=== PATIENT | female | born 1945 | race Caucasian/White ===

== ENCOUNTER 2018-04-20 11:25 | Inpatient (IN) | payer OTHER ==
[2018-04-20] MEDS ORDERED: methylPREDNISolone SOD SUCC 125 MG/2 ML VIAL IVP ONE (12:02)
[2018-04-20] MEDS ORDERED: IPRATROPIUM/ALBUTEROL 3 ML DEYVIAL IH ONE (12:02)
[2018-04-20] MEDS ORDERED: ALBUTEROL 3 ML DEYVIAL IH ONE ×2 (12:02→14:07)
[2018-04-20 12:12] LABS: PLATELET COUNT 411 10^3/uL (150-400)
--- NOTE | 2018-04-20 12:26 | EDPHY ---
HPI/HX/ROS/PE/MDM Narrative: CHIEF COMPLAINT: Shortness of breath HISTORY OF PRESENT ILLNESS: This patient is a 72 year old female with history of COPD complaining of an acute exacerbation of her COPD and significant shortness of breath. She began feeling unwell last night around 6pm and had frequent coughing and difficulty breathing from then until about 2am. She denies productive cough, but does have chest pain associated with the cough which is unusual. She has felt chilled but denies measured fever. She denies any recent ill contacts. She had a new skylight installed in her home several days ago which resulted in a strong chemical smell and she feels her symptoms worsened following this. No palpitations, vomiting, diarrhea, urinary complaints, headache, lightheadedness. She was recently admitted at [facility] for COPD exacerbation and had a steroid course. Of note she states she also had some chest pain then which was relieved with Nitro during this visit, but she is unclear about what cardiac history she may have. She had a recent cardiac catheterization which reportedly showed a 30% blockage; no stents placed. REVIEW OF SYSTEMS: A comprehensive 10 system review of systems is otherwise negative aside from elements mentioned in the history of present illness and medical decision making. PAST MEDICAL HISTORY: COPD (Home oxygen, 3L during the day with exercise, 2L at night) SOCIAL HISTORY: Former smoker. . Retired. VITAL SIGNS: Reviewed by me GENERAL: Thin, elderly female, 2-3 word dyspnea. Increased respiratory effort and rate. HEENT: Atraumatic. Eyes: No icterus, no injection. Mouth: Slightly dry moist mucous membranes. No erythema or lesions. Neck: supple with no adenopathy. LUNGS: Minimal air movement, left greater than right. CARDIAC: Regular rate and rhythm, no rubs, murmurs or gallops. ABDOMEN: Soft, nontender, nondistended, bowel sounds normal. BACK: No CVA tenderness. EXTREMITIES: No trauma. No edema. Range of motion is normal throughout. NEURO: Alert and oriented, grossly nonfocal. SKIN: Warm and dry, no rash. PSYCHIATRIC: Normal mentation, no agitation. Portions of this note were transcribed by a medical records receptionist. I personally performed a history, physical exam, medical decision making, and confirmed accuracy of information the transcribed note. ED Course: 72 y/o female with history of COPD presents with worsening shortness of breath. Administered DuoNeb. Plan for labs including CBC, chemistries, troponin, d-dimer , BNP, liver panel, respiratory pathogen PCR. Reassessed. Air movement slightly improved. Plan to administer an additional DuoNeb. Discussed admission. The patient concurs that admission would be best for her at this time. 12-LEAD EKG: Please see the full report in [facility]. My interpretation: Sinus rhythm, right atrial enlargement POC troponin 0.00. Chest x-ray shows mild bronchitis, possible early infiltrate in the right middle lobe. Patient received additional nebulizer treatments, steroids. Respiratory pathogen panel is negative for organisms. Patient was admitted to the hospital service for ongoing treatment of COPD exacerbation. Troponin and BNP are negative. 14:04 Dr. Hackett accepts admission for COPD exacerbation, dyspnea. MDM: Differential diagnosis for the patient's shortness of breath was considered including but not limited to pulmonary infectious processes, COPD exacerbation, pulmonary emboli, pulmonary edema, congestive heart failure, and cardiac causes. - Data Points Imaging Results: Imaging Impressions Chest X-Ray 04/20/18 11:51 Impression: Mild bronchitis. Possible early infiltrate in the right middle lobe. Other chronic findings as above. Imaging: I viewed and interpreted images myself Laboratory Results: Laboratory Results 04/20/18 11:50 04/20/18 11:50 04/20/18 04/20/18 04/20/18 11:52 11:50 11:50 WBC RBC Hgb Hct MCV MCH MCHC RDW Plt Count MPV Neut % (Auto) Lymph % (Auto) [place] % (Auto) Eos % (Auto) Baso % (Auto) Nucleat RBC Rel Count Absolute Neuts (auto) Absolute Lymphs (auto) Absolute Monos (auto) Absolute Eos (auto) Absolute Basos (auto) Absolute Nucleated RBC Immature Gran % Immature Gran # D-Dimer 0.42 ug/mLFEU ug/mLFEU (0.00-0.50) Sodium 137 mEq/L mEq/L (135-145) Potassium 4.7 mEq/L mEq/L (3.3-5.0) Chloride 97 mEq/L mEq/L (97-110) Carbon Dioxide 30 mEq/l mEq/l (22-31) Anion Gap 10 mEq/L mEq/L (8-16) BUN 14 mg/dL mg/dL (7-23) Creatinine 0.5 mg/dL L mg/dL (0.6-1.0) Estimated GFR > 60 Glucose 110 mg/dL H mg/dL (70-100) Calcium 9.8 mg/dL mg/dL (8.5-10.4) Total Bilirubin 0.4 mg/dL mg/dL (0.1-1.4) Conjugated Bilirubin 0.2 mg/dL mg/dL (0.0-0.5) Unconjugated Bilirubin 0.2 mg/dL mg/dL (0.0-1.1) AST 22 IU/L IU/L (14-46) ALT 34 IU/L IU/L (9-52) Alkaline Phosphatase 68 IU/L IU/L (38-126) POC Troponin I 0.00 ng/mL ng/mL (0.00-0.08) NT-Pro-B Natriuret Pep 79 pg/mL pg/mL (0-125) Total Protein 6.7 g/dL g/dL (6.3-8.2) Albumin 4.1 g/dL g/dL (3.5-5.0) 04/20/18 11:50 WBC 14.43 10^3/uL H 10^3/uL (3.80-9.50) RBC 4.92 10^6/uL 10^6/uL (4.18-5.33) Hgb 15.0 g/dL g/dL (12.6-16.3) Hct 46.7 % % (38.0-47.0) MCV 94.9 fL fL (81.5-99.8) MCH 30.5 pg pg (27.9-34.1) MCHC 32.1 g/dL L g/dL (32.4-36.7) RDW 13.9 % % (11.5-15.2) Plt Count 411 10^3/uL H 10^3/uL (150-400) MPV 8.4 fL L fL (8.7-11.7) Neut % (Auto) 75.5 % H % (39.3-74.2) Lymph % (Auto) 12.8 % L % (15.0-45.0) [place] % (Auto) 6.2 % % (4.5-13.0) Eos % (Auto) 4.3 % % (0.6-7.6) Baso % (Auto) 0.8 % % (0.3-1.7) Nucleat RBC Rel Count 0.0 % % (0.0-0.2) Absolute Neuts (auto) 10.89 10^3/uL H 10^3/uL (1.70-6.50) Absolute Lymphs (auto) 1.85 10^3/uL 10^3/uL (1.00-3.00) Absolute Monos (auto) 0.90 10^3/uL H 10^3/uL (0.30-0.80) Absolute Eos (auto) 0.62 10^3/uL H 10^3/uL (0.03-0.40) Absolute Basos (auto) 0.11 10^3/uL H 10^3/uL (0.02-0.10) Absolute Nucleated RBC 0.00 10^3/uL 10^3/uL (0-0.01) Immature Gran % 0.4 % % (0.0-1.1) Immature Gran # 0.06 10^3/uL 10^3/uL (0.00-0.10) D-Dimer Sodium Potassium Chloride Carbon Dioxide Anion Gap BUN Creatinine Estimated GFR Glucose Calcium Total Bilirubin Conjugated Bilirubin Unconjugated Bilirubin AST ALT Alkaline Phosphatase POC Troponin I NT-Pro-B Natriuret Pep Total Protein Albumin Medications Given: Discontinued Medications Albuterol (Proventil Neb) 3 ml IH EDNOW ONE Stop: 04/20/18 12:03 Last Admin: 04/20/18 12:14 Dose: 3 ml Albuterol (Proventil Neb) 3 ml IH EDNOW ONE Stop: 04/20/18 14:08 Last Admin: 04/20/18 14:09 Dose: 3 ml Albuterol/Ipratropium (Duoneb) 3 ml IH EDNOW ONE Stop: 04/20/18 12:03 Last Admin: 04/20/18 12:13 Dose: 3 ml Methylprednisolone Sodium Succinate (Solu-Medrol) 125 mg IVP EDNOW ONE Stop: 04/20/18 12:03 Last Admin: 04/20/18 12:13 Dose: 125 mg Point of Care Test Results: Chemistry 04/20/18 11:52 POC Troponin I 0.00 ng/mL ng/mL (0.00-0.08) Microbiology Results: MICROBIOLOGY 04/20/18 12:50 Nasal, Sinus - [place] Viral Transport Respiratory Panel ( PCR) - Final No Organism Detected General Time Seen by Provider: 04/20/18 11:56 Initial Vital Signs: Initial Vital Signs Temperature (C) 36.4 C 04/20/18 11:39 Heart Rate 99 04/20/18 11:39 Respiratory Rate 24 H 04/20/18 11:39 Blood Pressure 153/102 H 04/20/18 11:39 O2 Sat (%) 94 04/20/18 11:39 O2 Delivery Mode Nasal Cannula O2 (L/minute) 2 Allergies/Adverse Reactions: No Known Allergies Allergy (Verified 04/20/18 14:34) Home Medications: Medication Instructions Recorded Fluticasone/Salmeterol [Advair Hfa 1 puffs IH DAILY 03/30/16 115-21 Mcg Inhaler] Albuterol [Proventil Neb] 3 ml IH Q6HRS 04/20/18 Aspirin [Aspirin 81mg (*)] 81 mg PO DAILY 04/20/18 Atorvastatin Calcium [Lipitor 10 10 mg PO DAILY 04/20/18 mg (*)] Isosorbide Mononitrate [Imdur 30 30 mg PO DAILY 04/20/18 mg (*)] Departure - Departure Disposition: [facility] Inpatient Acute Clinical Impression: Chronic obstructive pulmonary disease with acute exacerbation Acute exacerbation of congestive heart failure Qualifiers: Heart failure type: unspecified Qualified Code(s): I50.9 - Heart failure, unspecified Condition: Fair Report Scribed for: Jennifer Clark Report Scribed by: Elyssa Whyte Date of Report: 04/20/18 Time of Report: 15:27
[2018-04-20] MEDS ORDERED: ALBUTEROL 3 ML DEYVIAL ONE (14:05)
[2018-04-20] MEDS ORDERED: ONDANSETRON 4 MG/2 ML VIAL IVP PRN (14:09)
[2018-04-20] MEDS ORDERED: ALBUTEROL 3 ML DEYVIAL IH PRN (14:09)
[2018-04-20] MEDS ORDERED: ACETAMINOPHEN 325 MG TAB PO PRN (14:09)
[2018-04-20] MEDS ORDERED: ONDANSETRON DISINTEGRATING 4 MG TAB PO PRN (14:09)
--- NOTE | 2018-04-20 14:51 | PDGENHP ---
History and Physical - Chief Complaint SOB, Cough - History of Present Illness Jessica Reese is a 72 yo F with PMHx of COPD on home 02 with 3 recent admissions for exacerbations who presents to [facility] for SOB. She reports that she began to experience SOB over the past few days with acute worsening last night. She attempted to take albuterol inhaler without significant improvement in SOB. She reports recent non-productive cough and chills. She denies any chest pain but does report R sided rib pain. She denies edema, d/c, n/v, palpitations , LH/dizziness. She was recently admitted to OSH 2 weeks ago and was discharged on course of Azithromycin and Prednisone which were completed one and a half weeks ago. She also reports she had an episode of chest pain prior to her last outside hospitalization. She has a cardiac cath at that time which showed 30% blockages with no stents placed. History Information - Allergies/Home Medication List Allergies/Adverse Reactions: No Known Allergies Allergy (Verified 04/20/18 14:34) Home Medications: Fluticasone/Salmeterol [Advair Hfa 115-21 Mcg Inhaler] 1 puffs IH DAILY [Last Taken 04/20/18] Albuterol [Proventil Neb] 3 ml IH Q6HRS 04/20/18 [Last Taken 04/20/18] Aspirin [Aspirin 81mg (*)] 81 mg PO DAILY 04/20/18 [Last Taken 04/20/18] Atorvastatin Calcium [Lipitor 10 mg (*)] 10 mg PO DAILY 04/20/18 [Last Taken ] Isosorbide Mononitrate [Imdur 30 mg (*)] 30 mg PO DAILY 04/20/18 [Last Taken ] I have personally reviewed and updated: family history, medical history, social history, surgical history - Past Medical History COPD - Surgical History Reports: no pertinent surgical hx - Family History Positive for: lung disease - Social History Smoking Status: Former smoker Review of Systems Review of Systems: ROS: 10pt was reviewed & negative except for what was stated in HPI & below Physical Exam Physical Exam: Temp Pulse Resp BP Pulse Ox 36.7 C 96 20 131/92 H 94 04/20/18 14:09 04/20/18 14:09 04/20/18 14:09 04/20/18 14:09 04/20/18 14:09 Constitutional: no apparent distress Eyes: PERRL Ears, Nose, Mouth, Throat: moist mucous membranes Cardiovascular: regular rate and rhythym Respiratory: no respiratory distress, reduced air movement, expiratory wheeze, bronchial breath sounds Gastrointestinal: normoactive bowel sounds, soft, non-tender abdomen Genitourinary: no bladder tenderness Skin: warm Musculoskeletal: no muscle tenderness Neurologic: AAOx3 Psychiatric: interacting appropriately Lab Data & Imaging Review 04/20/18 11:50 04/20/18 11:50 WBC 14.43 10^3/uL (3.80-9.50) H 04/20/18 11:50 RBC 4.92 10^6/uL (4.18-5.33) 04/20/18 11:50 Hgb 15.0 g/dL (12.6-16.3) 04/20/18 11:50 Hct 46.7 % (38.0-47.0) 04/20/18 11:50 MCV 94.9 fL (81.5-99.8) 04/20/18 11:50 MCH 30.5 pg (27.9-34.1) 04/20/18 11:50 MCHC 32.1 g/dL (32.4-36.7) L 04/20/18 11:50 RDW 13.9 % (11.5-15.2) 04/20/18 11:50 Plt Count 411 10^3/uL (150-400) H 04/20/18 11:50 MPV 8.4 fL (8.7-11.7) L 04/20/18 11:50 Neut % (Auto) 75.5 % (39.3-74.2) H 04/20/18 11:50 Lymph % (Auto) 12.8 % (15.0-45.0) L 04/20/18 11:50 Story % (Auto) 6.2 % (4.5-13.0) 04/20/18 11:50 Eos % (Auto) 4.3 % (0.6-7.6) 04/20/18 11:50 Baso % (Auto) 0.8 % (0.3-1.7) 04/20/18 11:50 Nucleat RBC Rel Count 0.0 % (0.0-0.2) 04/20/18 11:50 Absolute Neuts (auto) 10.89 10^3/uL (1.70-6.50) H 04/20/18 11:50 Absolute Lymphs (auto) 1.85 10^3/uL (1.00-3.00) 04/20/18 11:50 Absolute Monos (auto) 0.90 10^3/uL (0.30-0.80) H 04/20/18 11:50 Absolute Eos (auto) 0.62 10^3/uL (0.03-0.40) H 04/20/18 11:50 Absolute Basos (auto) 0.11 10^3/uL (0.02-0.10) H 04/20/18 11:50 Absolute Nucleated RBC 0.00 10^3/uL (0-0.01) 04/20/18 11:50 Immature Gran % 0.4 % (0.0-1.1) 04/20/18 11:50 Immature Gran # 0.06 10^3/uL (0.00-0.10) 04/20/18 11:50 D-Dimer 0.42 ug/mLFEU (0.00-0.50) 04/20/18 11:50 Sodium 137 mEq/L (135-145) 04/20/18 11:50 Potassium 4.7 mEq/L (3.3-5.0) 04/20/18 11:50 Chloride 97 mEq/L (97-110) 04/20/18 11:50 Carbon Dioxide 30 mEq/l (22-31) 04/20/18 11:50 Anion Gap 10 mEq/L (8-16) 04/20/18 11:50 BUN 14 mg/dL (7-23) 04/20/18 11:50 Creatinine 0.5 mg/dL (0.6-1.0) L 04/20/18 11:50 Estimated GFR > 60 04/20/18 11:50 Glucose 110 mg/dL (70-100) H 04/20/18 11:50 Calcium 9.8 mg/dL (8.5-10.4) 04/20/18 11:50 Total Bilirubin 0.4 mg/dL (0.1-1.4) 04/20/18 11:50 Conjugated Bilirubin 0.2 mg/dL (0.0-0.5) 04/20/18 11:50 Unconjugated Bilirubin 0.2 mg/dL (0.0-1.1) 04/20/18 11:50 AST 22 IU/L (14-46) 04/20/18 11:50 ALT 34 IU/L (9-52) 04/20/18 11:50 Alkaline Phosphatase 68 IU/L (38-126) 04/20/18 11:50 POC Troponin I 0.00 ng/mL (0.00-0.08) 04/20/18 11:52 NT-Pro-B Natriuret Pep 79 pg/mL (0-125) 04/20/18 11:50 Total Protein 6.7 g/dL (6.3-8.2) 04/20/18 11:50 Albumin 4.1 g/dL (3.5-5.0) 04/20/18 11:50 Visualized and Interpreted Chest x-ray results: Yes Chest X-Ray results: infiltrate Assessment & Plan Assessment: COPD Exacerbation, Acute - Reports recent SOB with nonproductive cough - On home , currently saturating in 90's on 3L - S/p 125 mg IV Solumedrol in ED, will continue Prednisone 40 mg qd - Will start Levaquin IV 500 mg qd for RML infiltrate seen on CXR, also seen mild bronchitis - Patient may require longer taper , consider consulting Pulmonology for input give multiple recent exacerbations - S/p Duoneb in ED, will order scheduled and PRN - D-dimer negative in ED Bacterial Pneumonia, Acute - CXR on admission shows possible early RML infiltrate - WBC 14.4 on admission - Will start IV Levaquin as above - Viral PCR pending - Transition to PO abx pending clinical course CAD - Per patient had LHC during recent hospitalization with 30% blockage - Patient denies chest pain currently - Continue home ASA, Atorvastatin, Imdur FEN: PRN Ppx: Lovenox Code: DNI Dispo: Admit to Medicine
[2018-04-20] MEDS ORDERED: IPRATROPIUM/ALBUTEROL 3 ML DEYVIAL IH PRN (15:00)
--- NOTE | 2018-04-20 15:53 | CPEKG ---
Test Reason : OPEN Blood Pressure : / mmHG Vent. Rate : 098 BPM Atrial Rate : 097 BPM P-R Int : 186 ms QRS Dur : 078 ms QT Int : 333 ms P-R-T Axes : 088 256 076 degrees QTc Int : 426 ms Sinus rhythm Atrial premature complex Right atrial enlargement Markedly posterior QRS axis Confirmed by Jennifer Clark ([id number]) on 04/20/2018 3:53:33 PM Referred By: Confirmed By:Jennifer Clark
[2018-04-20] MEDS: levOFLOXACIN 500 MG/DEXTROSE 100 ML IV SCH (16:36)
--- NOTE | 2018-04-20 17:28 | PDMN ---
Medical Necessity Medical necessity: [facility] [place] M282 CAP and M100 COPD: 72 y/o w/ COPD Exacerbation, Acute, and Bacterial Pneumonia, Acute, on O2, start IV steroids, nebs, WBC 14.4 , initially tachypneac, start IV antibx, PT/OT consults, isolation precautions, Hx CAD, recently admitted to another facility 2wks ago and was d/c w/ azithromycin and prednisone which she completed. Anticipate >2MN for ongoing monitoring and treatment.
[2018-04-20] MEDS: IPRATROPIUM/ALBUTEROL 3 ML DEYVIAL IH SCH ×2 (17:49→21:36)
[2018-04-21 04:55] LABS: PLATELET COUNT 365 10^3/uL (150-400)
[2018-04-21] MEDS: IPRATROPIUM/ALBUTEROL 3 ML DEYVIAL IH SCH ×4 (05:48→21:59)
[2018-04-21] MEDS: ASPIRIN 81 MG CHEWABLE TAB PO SCH (09:07)
[2018-04-21] MEDS: ISOSORBIDE MONONITRATE 30 MG TAB.SR PO SCH (09:07)
[2018-04-21] MEDS: ENOXAPARIN 40 MG/0.4 ML SYR SC SCH (09:07)
[2018-04-21] MEDS: ATORVASTATIN CALCIUM 10 MG TAB PO SCH (09:07)
[2018-04-21] MEDS: predniSONE 20 MG TAB PO SCH (09:07)
[2018-04-21] MEDS: levOFLOXACIN 500 MG/DEXTROSE 100 ML IV SCH (09:17)
--- NOTE | 2018-04-21 09:40 | ASMTCASEMG ---
Living Arrangements What is your living Answers: With Spouse arrangement? Who do you live with? Type Of Residence What kind of residence do Answers: House you live in? Discharge Plan Comments Coordination Status Comments Notes: P ts case discussed w/ JOSE Murray. Pt is a 72 y/o female admitted for shortness of breath and a cough. Pt is legally blind. Pts is unable to walk at this time. Therapies have been ordered and awaiting recommendations. Needs are TBD at this time. CM to follow. Plan: TBD Date Signed: 04/21/2018 09:39 AM Electronically Signed By:MAYNOR Mondragon
[2018-04-21] MEDS: SALMETEROL IH SCH (10:35)
[2018-04-21] MEDS: FLUTICASONE IH SCH (10:35)
--- NOTE | 2018-04-21 10:37 | HOSPPROG ---
Hospitalist Progress Note Assessment/Plan: 72yo F with COPD on supplemental O2, non-obstructive CAD, blindness presents with 4th reported hospitalization in 2 months for dyspnea. She reports being treated for COPD exacerbations during all of these episodes. #Acute COPD exacerbation: Mild. She has improved. Possibly triggered by pneumonia but not impressive x-ray. - Continue scheduled bronchodilators, steroids, antibiotics per below - Will discuss with pulmonology given her frequent admissions for same. She has been followed by Dr Woods but hasn't seen him in 6 months or so. I query whether she is not using inhalers correctly at home and will try to provide education on this. #Suspected bacterial pneumonia: X-ray with possible early RML infiltrate on lateral view. RVP negative. - Continue levofloxacin, switch to oral and reduce dose for GFR #Acute on chronic respiratory insufficiency: Now at baseline 2-3L via NC. #Non-obstructive CAD: Recent angiogram with greatest stenosis of 40% in mid- LAD. LVEF normal. No anginal sxs currently. She has been in cardiac rehab in past. - Continue asa, statin, nitrate #Blindness due to macular degeneration Diet: regular VTE ppx: Lovenox Code: DNI Dispo: Remain inpatient for scheduled nebulizers, management of COPD exacerbation. Subjective: Shortness of breath improved with nebs, treatment. Denies cough, fevers. Objective: Vital Signs Temp Pulse Resp BP Pulse Ox 36.6 C 68 16 120/63 92 04/21/18 07:40 04/21/18 07:40 04/21/18 07:40 04/21/18 07:40 04/21/18 07:40 Laboratory Results 04/21/18 04:31 04/20/18 04/21/18 04/22/18 05:59 05:59 05:59 Intake Total 1100 Balance 1100 - Physical Exam Constitutional: no apparent distress, appears nourished, not in pain Eyes: PERRL, anicteric sclera, EOMI Ears, Nose, Mouth, Throat: moist mucous membranes, hearing normal, ears appear normal, no oral mucosal ulcers Cardiovascular: regular rate and rhythym, no murmur, rub, or gallop, No JVD, No edema Respiratory: no respiratory distress, reduced air movement (throughout), No expiratory wheeze, No rhonchi Gastrointestinal: normoactive bowel sounds, soft, non-tender abdomen, no palpable masses Genitourinary: no bladder fullness, no bladder tenderness, no renal bruits Skin: no rashes or abrasions, no fluctuance, no induration Neurologic: AAOx3, sensation intact bilaterally Psychiatric: interacting appropriately, not anxious, not encephalopathic, thought process linear ICD10 Worksheet Patient Problems: Problems Problem Status Onset Acute exacerbation of congestive heart failure Acute Chronic obstructive pulmonary disease with acute exacerbation Acute Bronchitis Acute COPD (chronic obstructive pulmonary disease) Acute Chronic Disease Mgmt/Transitional Care Acute Hypoxia Acute
[2018-04-22] MEDS: IPRATROPIUM/ALBUTEROL 3 ML DEYVIAL IH SCH ×4 (06:54→21:10)
[2018-04-22] MEDS: ASPIRIN 81 MG CHEWABLE TAB PO SCH (08:51)
[2018-04-22] MEDS: ISOSORBIDE MONONITRATE 30 MG TAB.SR PO SCH (08:51)
[2018-04-22] MEDS: ATORVASTATIN CALCIUM 10 MG TAB PO SCH (08:51)
[2018-04-22] MEDS: predniSONE 20 MG TAB PO SCH (08:51)
[2018-04-22] MEDS: ENOXAPARIN 40 MG/0.4 ML SYR SC SCH (08:52)
[2018-04-22] MEDS: SALMETEROL IH SCH (08:53)
[2018-04-22] MEDS: FLUTICASONE IH SCH (08:53)
[2018-04-22] MEDS ORDERED: levOFLOXACIN 250 MG/DEXTROSE 50 ML IV SCH (09:00)
--- NOTE | 2018-04-22 10:29 | HOSPPROG ---
Hospitalist Progress Note Assessment/Plan: 72yo F with COPD on supplemental O2, non-obstructive CAD, blindness presents with 4th reported hospitalization in 2 months for dyspnea. She reports being treated for COPD exacerbations during all of these episodes. #Acute COPD exacerbation: Mild. She has improved. Possibly triggered by pneumonia but not impressive x-ray. - Continue scheduled bronchodilators, steroids, antibiotics per below. - Would wean her slowly from steroids upon discharge - Will discuss with pulmonology given her frequent admissions for same. She has been followed by Dr Woods but hasn't seen him in 6 months or so. I query whether she is not using inhalers correctly at home and will try to provide education on this. #Suspected bacterial pneumonia: X-ray with possible early RML infiltrate on lateral view. RVP negative. - Continue levofloxacin, switch to oral and reduce dose for GFR - duration for abx should be 5-7 days #Acute on chronic respiratory insufficiency: Now at baseline 2-3L via NC. #Non-obstructive CAD: Recent angiogram with greatest stenosis of 40% in mid- LAD. LVEF normal. No anginal sxs currently. She has been in cardiac rehab in past. - Continue asa, statin, nitrate #Blindness due to macular degeneration #Weakness-generalized -PT/OT following. will cont to work with them today. She may benefit from SNF Diet: regular VTE ppx: Lovenox Code: DNI Dispo: Remain inpatient for scheduled nebulizers, management of COPD exacerbation, and mgmt of weakness. She will likely benefit from a SNF and CM will determine if this is a viable option Subjective: reports that she feels weak. PT/OT will work with her. Resp status is better. Objective: Vital Signs Temp Pulse Resp BP Pulse Ox 36.6 C 84 18 119/70 91 L 04/22/18 09:27 04/22/18 09:27 04/22/18 09:27 04/22/18 09:27 04/22/18 09:27 Laboratory Results 04/22/18 04:58 04/21/18 04/22/18 04/23/18 05:59 05:59 05:59 Intake Total 1100 Balance 1100 - Physical Exam Constitutional: no apparent distress Eyes: PERRL Ears, Nose, Mouth, Throat: moist mucous membranes, hearing normal Cardiovascular: regular rate and rhythym, No edema Respiratory: no respiratory distress, reduced air movement Gastrointestinal: normoactive bowel sounds, soft, non-tender abdomen Skin: warm Musculoskeletal: generalized weakness Neurologic: AAOx3 Psychiatric: interacting appropriately, not anxious, not encephalopathic Lymph, Heme, Immunologic: No petechiae ICD10 Worksheet Patient Problems: Problems Problem Status Onset Acute exacerbation of congestive heart failure Acute Chronic obstructive pulmonary disease with acute exacerbation Acute Bronchitis Acute COPD (chronic obstructive pulmonary disease) Acute Chronic Disease Mgmt/Transitional Care Acute Hypoxia Acute
--- NOTE | 2018-04-22 10:48 | ASMTCMCOM ---
CM Note CM Note Notes: CM met w/ pt for dispo planning. PT is recommending SNF. Pt is agreeable for CM to make referrals to [facility] and [facility]. CM to follow. Plan: SNF Date Signed: 04/22/2018 10:47 AM Electronically Signed By:MAYNOR Mondragon
--- NOTE | 2018-04-22 14:02 | ASMTCMCOM ---
JD Note CM Note Notes: Met with pt, let her know that [facility] and [facility] accepted. Pt chooses [facility], it will be easier for her . CM notified both facilities of her choice. DC Plan: [facility] Date Signed: 04/22/2018 02:01 PM Electronically Signed By:Olga Hollis RN
[2018-04-23] MEDS: IPRATROPIUM/ALBUTEROL 3 ML DEYVIAL IH SCH ×2 (05:13→11:05)
[2018-04-23] MEDS: ISOSORBIDE MONONITRATE 30 MG TAB.SR PO SCH (08:26)
[2018-04-23] MEDS: ATORVASTATIN CALCIUM 10 MG TAB PO SCH (08:26)
[2018-04-23] MEDS: ASPIRIN 81 MG CHEWABLE TAB PO SCH (08:26)
[2018-04-23] MEDS: predniSONE 20 MG TAB PO SCH (08:26)
[2018-04-23] MEDS: FLUTICASONE IH SCH (08:27)
[2018-04-23] MEDS: ENOXAPARIN 40 MG/0.4 ML SYR SC SCH (08:27)
[2018-04-23] MEDS: SALMETEROL IH SCH (08:27)
[2018-04-23 12:17] VITALS: BP 130/76
--- NOTE | 2018-04-23 13:09 | HOSPPROG ---
Hospitalist Progress Note Assessment/Plan: 72yo F with COPD on supplemental O2, non-obstructive CAD, blindness presents with 4th reported hospitalization in 2 months for dyspnea. She reports being treated for COPD exacerbations during all of these episodes. Acute COPD exacerbation: Mild. She has improved. Possibly triggered by pneumonia but not impressive x-ray. - Continue scheduled bronchodilators, steroids, antibiotics per below. - Would wean her slowly from steroids upon discharge - Will discuss with pulmonology given her frequent admissions for same. She has been followed by Dr Woods but hasn't seen him in 6 months or so. I query whether she is not using inhalers correctly at home and will try to provide education on this. Suspected bacterial pneumonia: X-ray with possible early RML infiltrate on lateral view. RVP negative. - Continue levofloxacin, switch to oral and reduce dose for GFR - duration for abx should be 5-7 days Acute on chronic respiratory insufficiency: Now at baseline 2-3L via NC. Non-obstructive CAD: Recent angiogram with greatest stenosis of 40% in mid-LAD. LVEF normal. No anginal sxs currently. She has been in cardiac rehab in past. - Continue asa, statin, nitrate Blindness due to macular degeneration Weakness-generalized -PT/OT following. will cont to work with them today. She may benefit from SNF Diet: regular VTE ppx: Lovenox Code: DNI Dispo:home today > 30 minutes on dc Subjective: feels better. anxious for dc Objective: Vital Signs Temp Pulse Resp BP Pulse Ox 36.4 C 94 18 130/76 H 92 04/23/18 07:20 04/23/18 12:16 04/23/18 12:16 04/23/18 12:16 04/23/18 12:16 Laboratory Results 04/23/18 05:06 - Physical Exam Constitutional: no apparent distress, appears nourished Eyes: PERRL, anicteric sclera Ears, Nose, Mouth, Throat: moist mucous membranes, hearing normal Cardiovascular: regular rate and rhythym, no murmur, rub, or gallop Respiratory: no respiratory distress, no rales or rhonchi Gastrointestinal: normoactive bowel sounds, soft, non-tender abdomen Genitourinary: no bladder fullness, No alonzo in urethra Skin: warm, normal color Musculoskeletal: full muscle strength Neurologic: AAOx3 Psychiatric: interacting appropriately Lymph, Heme, Immunologic: no cervical LAD ICD10 Worksheet Patient Problems: Problems Problem Status Onset Acute exacerbation of congestive heart failure Acute Chronic obstructive pulmonary disease with acute exacerbation Acute Bronchitis Acute COPD (chronic obstructive pulmonary disease) Acute Chronic Disease Mgmt/Transitional Care Acute Hypoxia Acute
--- NOTE | 2018-04-23 14:21 | ASMTLACE ---
[facility] Length of stay for Answers: 3 days current admission Acuity / Level of Answers: Yes Care: Did the patient have an inpatient admission? Comorbidities - select Answers: Chronic pulmonary disease all that apply Other Notes: Hx of DVT; Macular degeneration # of Emergency department Answers: 1-2 visits in the last 6 months Score: 10 Date Signed: 04/23/2018 02:20 PM Electronically Signed By:Olga Hollis RN
--- NOTE | 2018-04-23 15:29 | PDIAF ---
- Diagnosis Diagnosis: copd exacerbation Code Status: Limited Resuscitation - Medication Management Discharge Medications: Medications to Continue on Transfer Fluticasone/Salmeterol [Advair Hfa 115-21 Mcg Inhaler] 1 puffs IH DAILY [Last Taken 04/20/18] Albuterol [Proventil Neb] 3 ml IH Q6HRS 04/20/18 [Last Taken 04/20/18] Aspirin [Aspirin 81mg (*)] 81 mg PO DAILY 04/20/18 [Last Taken 04/20/18] Atorvastatin Calcium [Lipitor 10 mg (*)] 10 mg PO DAILY 04/20/18 [Last Taken ] Isosorbide Mononitrate [Imdur 30 mg (*)] 30 mg PO DAILY 04/20/18 [Last Taken ] levOFLOXACIN [levAQUIN (*)] 250 mg PO DAILY@1000 #3 tab 04/23/18 [Last Taken Unknown] predniSONE 40 mg PO DAILY tablet 04/23/18 [Last Taken Unknown] Discharge Medications: Refer to the Discharge Home Medication list for PRN reason. - Orders Services needed: Registered Nurse, Certified Turbine Inspector, Physical Therapy, Occupational Therapy Isolation Type: None - Follow Up Care Current Providers and Referrals: Mela Hernandez MD [Primary Care Provider] - As per Instructions
--- NOTE | 2018-04-23 16:07 | PDIAF ---
- Diagnosis Diagnosis: copd exacerbation Code Status: Limited Resuscitation - Medication Management Discharge Medications: Medications to Continue on Transfer Fluticasone/Salmeterol [Advair Hfa 115-21 Mcg Inhaler] 1 puffs IH DAILY [Last Taken 04/20/18] Albuterol [Proventil Neb] 3 ml IH Q6HRS 04/20/18 [Last Taken 04/20/18] Aspirin [Aspirin 81mg (*)] 81 mg PO DAILY 04/20/18 [Last Taken 04/20/18] Atorvastatin Calcium [Lipitor 10 mg (*)] 10 mg PO DAILY 04/20/18 [Last Taken ] Isosorbide Mononitrate [Imdur 30 mg (*)] 30 mg PO DAILY 04/20/18 [Last Taken ] levOFLOXACIN [levAQUIN (*)] 250 mg PO DAILY@1000 #3 tab 04/23/18 [Last Taken Unknown] predniSONE 40 mg PO DAILY tablet 04/23/18 [Last Taken Unknown] Additional Medication Instructions: steroid taper. 40 mg po daily x 5 days. 30 mg po daily x 5 days. 20 mg po daily x 5 days. 10 mg po daily x 5 days. 5 mg po daily x 5 days. stop Discharge Medications: Refer to the Discharge Home Medication list for PRN reason. - Orders Services needed: Registered Nurse, Certified Child Caregiver Private Home, Physical Therapy, Occupational Therapy Isolation Type: None - Follow Up Care Current Providers and Referrals: Mela Hernandez MD [Primary Care Provider] - As per Instructions
--- NOTE | 2018-04-23 16:24 | ASMTDCNOTE ---
Case Management Discharge Discharge Order Complete? Answers: Yes Patient to Obtain Answers: Other Notes: [facility] Transportation Arranged Answers: Other Notes: [facility] will Pick (Date 04/23/2018 04:00 PM & Time) Faxed Final Orders Answers: Yes Agency/Facility Transfer Answers: Yes Report Printed & Faxed to Receiving Agency Discharge Comments Notes: D/kary MOMIN, final orders faxed. Edith olmedo enaied, RN to call report Date Signed: 04/23/2018 03:43 PM Electronically Signed By:Olga Hollis RN
--- NOTE | 2018-04-23 17:09 | GDS ---
DISCHARGE DIAGNOSES: 1. Chronic obstructive pulmonary disease exacerbation. 2. Chronic hypoxemic respiratory failure. 3. Hyperlipidemia. 4. Coronary artery disease. Please see admission history and physical by Dr. Gerald Hackett. The patient presented with increased s hortness of breath. This is the third admission in the last year. She does not take chronic steroid s, but she does take inhalers. Her clerk television production is Dr. Woods, who will have followup with her. Th e patient was afebrile while here. She maintained on steroids with improvement in her pulmonary stat us. She had a negative D-dimer, effectively ruling out PE. She is discharged to [facility] on a long steroid taper over about 2 weeks, as well as a short course of levofloxacin. /[id number]/MODL
--- NOTE | 2018-04-23 17:15 | ASDISCHSUM ---
Discharge Information Plan Status:SNF Medically Cleared to Leave: Discharge Date:04/23/2018 04:17 PM CM D/C Disposition:[facility]-Way Facility ADT D/C Disposition:Half-Way Facility Projected Discharge Date:04/22/2018 11:00 AM Transportation at D/C:Wheelchair Van Discharge Delay Reason: Follow-Up Date:04/22/2018 11:00 AM Discharge Slot: Final Diagnosis: Placement Information Referral Type:*Longterm/SNF Referral ID:[id number] Provider Name:Nurys Nichols Address 1:[address] Phone Number: Address 2: Fax Number: City:[place] Selection Factors: State:[place] Patient Contact Information Contact Name:ROMELIA Relationship: Address:[address] [place] [address] City:[facility] Alternate Phone: State/Zip Code:[place] [address] Email: Financial Information Financial Class:Medicare Primary Plan Desc:MEDICARE INPATIENT Primary Plan Number:[id number] Secondary Plan Desc: Secondary Plan Number:[id number] Assessment Information LACE LACE Length of stay for Answers: 3 days current admission Acuity / Level of Answers: Yes Care: Did the patient have an inpatient admission? Comorbidities - select Answers: Chronic pulmonary disease all that apply Other Notes: Hx of DVT; Macular degeneration # of Emergency department Answers: 1-2 visits in the last 6 months Score: 10 Date Signed: 04/23/2018 02:20 PM Electronically Signed By:Olga Hollis RN [facility] Initial CM Assessment Living Arrangements What is your living Answers: With Spouse arrangement? Who do you live with? Type Of Residence What kind of residence do Answers: House you live in? Discharge Plan Comments Coordination Status Comments Notes: P ts case discussed w/ JOSE Murray. Pt is a 72 y/o female admitted for shortness of breath and a cough. Pt is legally blind. Pts is unable to walk at this time. Therapies have been ordered and awaiting recommendations. Needs are TBD at this time. CM to follow. Plan: TBD Date Signed: 04/21/2018 09:39 AM Electronically Signed By:MAYNOR Mondragon [facility] CM Progress Note CM Note CM Note Notes: CM met w/ pt for dispo planning. PT is recommending SNF. Pt is agreeable for CM to make referrals to [facility] and [facility]. CM to follow. Plan: SNF Date Signed: 04/22/2018 10:47 AM Electronically Signed By:MAYNOR Mondragon [facility] JD Progress Note CM Note CM Note Notes: Met with pt, let her know that [facility] accepted. Pt chooses [facility], it will be easier for her . CM notified both facilities of her choice. DC Plan: [facility] Date Signed: 04/22/2018 02:01 PM Electronically Signed By:Olga Hollis RN Case Management Discharge Plan Note Case Management Discharge Discharge Order Complete? Answers: Yes Patient to Obtain Answers: Other Notes: [facility] Transportation Arranged Answers: Other Notes: [facility] will Pick (Date 04/23/2018 04:00 PM & Time) Faxed Final Orders Answers: Yes Agency/Facility Transfer Answers: Yes Report Printed & Faxed to Receiving Agency Discharge Comments Notes: D/kary MOMIN, final orders faxed. Edith olmedo notified, JOSE to call report Date Signed: 04/23/2018 03:43 PM Electronically Signed By:Olga Hollis RN Intervention Information
== END 2018-04-23 16:17 | DRG 190 ==
LOC: F3E 15:37
PROVIDERS: ADMIT Internal Medicine; ATTEND Internal Medicine
DX: J44.0 Chronic obstructive pulmonary disease with (acute) lower respiratory infection (principal); J15.9 Unspecified bacterial pneumonia; J44.1 Chronic obstructive pulmonary disease with (acute) exacerbation; I25.10 Atherosclerotic heart disease of native coronary artery without angina pectoris; Z99.81 Dependence on supplemental oxygen; Z87.891 Personal history of nicotine dependence; J96.11 Chronic respiratory failure with hypoxia; E78.5 Hyperlipidemia, unspecified; H35.30 Unspecified macular degeneration
CPT/HCPCS: 84484-PO; 96374; 97116-GP; 97162-GP; 97166-GO; 97530-GO; 97535-GO; G0008; G8978-GP-CJ; G8979-GP-CI; G8980-GP-CI; G8987-GO-CI; G8988-GO-CI; G8989-GO-CI; J1650; J1956; J2930; J7512; J7613

== ENCOUNTER → 2018-06-25 | Outpatient (CLI) | payer OTHER | LOC: FIMAGING 11:50 | PROVIDERS: ATTEND Family Medicine | DX: J43.2 Centrilobular emphysema (principal); J42 Unspecified chronic bronchitis; R91.8 Other nonspecific abnormal finding of lung field ==